=== PATIENT | male | born 1985 | race Caucasian/White ===

== ENCOUNTER 2019-06-20 02:40 | Inpatient (IN) | payer OTHER ==
[~2019-06-20] VITALS: Ht 180.3 cm; Wt 110.2 kg
[2019-06-20] VITALS (7 sets, daily range): BP systolic 151–158; BP diastolic 98–100
[2019-06-20] MEDS ORDERED: ONDANSETRON HCL INJ 2MG/ML 2ML 2 MG/ML VIAL IV STA (02:46)
[2019-06-20] MEDS ORDERED: MORPHINE SULFATE INJ 4 MG/ML INJ 1ML IV STA (02:46)
--- NOTE | 2019-06-20 02:47 | NUR ---
RESP CALLED FOR HHN TX
--- NOTE | 2019-06-20 02:56 | NUR ---
resp at bs for hhn tx
[2019-06-20] MEDS ORDERED: ASPIRIN 81 MG CHEW TAB PO ONE (03:00)
[2019-06-20] MEDS ORDERED: ALBUTEROL/IPRATROPIUM 3 ML NEB NEB ONE ×2 (03:00→06:00)
[2019-06-20 03:08] LABS: BASOPHILS # (AUTO) 0.1 (0.0-0.1); BASOPHILS % 0.6 % (0.0-1.0); EOSINOPHILS # (AUTO) 0.1 (0.0-0.4); EOSINOPHILS % 0.6 % (0.0-6.0); HEMATOCRIT 44.6 % (38.2-49.6); HEMOGLOBIN 15.4 g/dL (14.0-18.0); LYMPHOCYTES # (AUTO) 2.3 (1.0-3.2); MEAN CORPUSCULAR HGB CONC 34.5 g/dL (31-35); MEAN CORPUSCULAR VOLUME 92.7 fL (81-99); MONOCYTES % 9.5 % (4.4-11.3); NEUTROPHILS % 66.9 % (38.7-80.0); PLATELET COUNT 245 x10e3/uL (140-360); RED BLOOD COUNT 4.81 x10e6/uL (4.3-5.7)
[2019-06-20 03:24] LABS: ALANINE AMINOTRANSFERASE 74 IU/L (0-55); ALBUMIN 3.3 g/dL (3.5-5.0); ALBUMIN/GLOBULIN RATIO 0.8 (0.8-2.0); ALKALINE PHOSPHATASE 147 IU/L (40-150); ANION GAP 13.2 mmol/L (8-16); BLOOD UREA NITROGEN 7 mg/dL (7-26); BUN/CREATININE RATIO 9 (6-25); CALCIUM 9.2 mg/dL (8.4-10.2); CARBON DIOXIDE 32 mmol/L (22-29); CHLORIDE 99 mmol/L (98-107); CREATINE KINASE 296 IU/L (30-200); CREATININE, SERUM 0.76 mg/dL (0.72-1.25); EST GLOMERULAR FILTRATION RATE > 60 ML/MIN (60-); GLUCOSE 140 mg/dL (74-118); POTASSIUM 3.2 mmol/L (3.5-5.1); SODIUM 141 mmol/L (136-145)
[2019-06-20] MEDS ORDERED: IOPAMIDOL 370 MG/ML 200 ML INFUS..BTL INJ ONE (03:41)
[2019-06-20] MEDS ORDERED: SODIUM CHLORIDE 0.9% 50ML 50 ML ONE (03:41)
--- NOTE | 2019-06-20 03:45 | Diagnostic Imaging Report ---
EXAMINATION: CHEST SINGLE (PORTABLE) INDICATION: SOB. COMPARISON: None FINDINGS: TUBES and LINES: None. LUNGS: Lungs are are moderately inflated. There is central vascular congestion. Mild interstitial opacities. Patchy bibasilar opacities, likely atelectasis. PLEURA: No pleural effusion or pneumothorax. HEART AND MEDIASTINUM: The cardiomediastinal silhouette is mildly enlarged. BONES AND SOFT TISSUES: No acute osseous lesion. Soft tissues are unremarkable. UPPER ABDOMEN: No free air under the diaphragm. IMPRESSION: Mild cardiomegaly with central vascular congestion and mild interstitial edema. Signed by: Dr. Nury Pearce MD on 06/20/2019 3:42 AM
--- NOTE | 2019-06-20 04:27 | Diagnostic Imaging Report ---
EXAM: CT Chest WITH contrast- Pulmonary Embolism Protocol INDICATION: Chest pain, hypoxia. COMPARISON: Chest radiograph 06/20/2019. TECHNIQUE: Chest was scanned utilizing a multidetector helical scanner from the lung apex through the level of the diaphragm after administration of IV contrast. Coronal and sagittal reformations were obtained. Pulmonary embolism protocol was performed. IV CONTRAST: 100 cc of Isovue 370 RADIATION DOSE: Total DLP: 641.6 mGy*cm Dose modulation, iterative reconstruction, and/or weight based adjustment of the mA/kV was utilized to reduce the radiation dose to as low as reasonably achievable. COMPLICATIONS: None FINDINGS: LINES/ TUBES: None. PULMONARY ARTERIES: No filling defect is identified within the pulmonary arteries to the segmental level. The subsegmental pulmonary arteries are not well opacified. Main pulmonary artery measures 3.1 cm in diameter. LUNGS AND AIRWAYS: The central airways are patent. There are multifocal groundglass opacities with tree-in-bud nodules, left lung greater than right. Diffuse mild bronchial wall thickening. PLEURA: The pleural spaces are clear. HEART AND MEDIASTINUM: The thyroid gland is normal. Enlarged right paratracheal lymph node measuring 1.5 cm on series 2, image 24. No cardiomegaly or pericardial effusion. Scattered coronary atherosclerosis. Minimal coronary atherosclerosis (series 2, image 48). UPPER ABDOMEN: Limited contrast enhanced views of the upper abdomen. Diffuse hepatic steatosis. BONES: The visualized bony thorax is within normal limits. SOFT TISSUES: Unremarkable. IMPRESSION: No evidence of pulmonary embolism to the level of the segmental pulmonary arteries. Multifocal groundglass and tree-in-bud opacities, consistent with infectious process. Enlarged right paratracheal lymph node, likely reactive. Diffuse hepatic steatosis. Minimal coronary atherosclerosis. Signed by: Dr. Nury Pearce MD on 06/20/2019 4:24 AM
[2019-06-20] MEDS ORDERED: AZITHROMYCIN 500MG/NS 250 ML 250 ML IV STA (04:46)
[2019-06-20] MEDS ORDERED: CEFTRIAXONE SOD 1 GM/NS 50 ML 50 ML IV ONE (05:00)
--- OUTSIDE RECORDS SUMMARY | 2019-06-20 05:02 | XMS REPORT ---
Author Author [facility] Address Unknown Phone Unavailable Care Team Providers Care Air Drier Machine Operator Name Role Phone JUSTO FLANNERY Unavailable Unavailable Problems This patient has no known problems. Allergies, Adverse Reactions, Alerts This patient has no known allergies or adverse reactions. Medications This patient has no known medications. Results Test Description Test Time Test Comments Text Results Atomic Results Result Comments CT CHEST W 2019-06-20 04:14:00 [place] [address] Patient Name: MCKENZIE BELL JR MR #: [id number] : 1985 Age/Sex: 33/M Req #: [id number] Adm Physician: Ordered by: JUSTO FLANNERY DO Report #: [id number] Location: ER Room/Bed: Procedure: [id number] CT/CT CHEST W Exam Date: Exam Time: REPORT STATUS: Signed EXAM: CT Chest WITH contrast- Pulmonary Embolism Protocol INDICATION: Chest pain, hypoxia. COMPARISON: Chest radiograph 06/20/2019. TECHNIQUE: Chest was scanned utilizing a multidetector helical scanner from the lung apex through the level of the diaphragm after administration of IV contrast. Coronal and sagittal reformations were obtained. Pulmonary embolism protocol was performed. IV CONTRAST: 100 cc of Isovue 370 RADIATION DOSE: Total DLP: 641.6 mGy*cm Dose modulation, iterative reconstruction, and/or weight based adjustment of the mA/kV was utilized to reduce the radiation dose to as low as reasonably achievable. COMPLICATIONS: None FINDINGS: LINES/ TUBES: None. PULMONARY ARTERIES: No filling defect is identified within the pulmonary arteries to the segmental level. The subsegmental pulmonary arteries are not well opacified. Main pulmonary artery measures 3.1 cm in diameter. LUNGS AND AIRWAYS: The central airways are patent. There are multifocal groundglass opacities with tree-in-bud nodules, left lung greater than right. Diffuse mild bronchial wall thickening. PLEURA: The pleural spaces are clear. HEART AND MEDIASTINUM: The thyroid gland is normal. Enlarged right paratracheal lymph node measuring 1.5 cm on series 2, image 24. No cardiomegaly or pericardial effusion. Scattered coronary atherosclerosis. Minimal coronary atherosclerosis (series 2, image 48). UPPER ABDOMEN: Limited contrast enhanced views of the upper abdomen. Diffuse hepatic steatosis. BONES: The visualized bony thorax is within normal limits. SOFT TISSUES: Unremarkable. IMPRESSION: No evidence of pulmonary embolism to the level of the segmental pulmonary arteries. Multifocal groundglass and tree-in-bud opacities, consistent with infectious process. Enlarged right paratracheal lymph node, likely reactive. Diffuse hepatic steatosis. Minimal coronary atherosclerosis. Signed by: Dr. Dale Servin MD on 06/20/2019 4:24 AM Dictated By: DALE SERVIN MD 3 Transcribed By: MAGDIEL on 06/20/19423 COPY TO: JUSTO FLANNERY DO CHEST SINGLE (PORTABLE) 2019-06-20 03:40:00 [place] [address] Patient Name: MCKENZIE BELL JR MR #: [id number] : 1985 Age/Sex: 33/M Req #: [id number] Adm Physician: Ordered by: JUSTO FLANNERY DO Report #: [id number] Location: ER Room/Bed: Procedure: [id number] DX/CHEST SINGLE (PORTABLE) Exam Date: 06/20/19 Exam Time: 0300 REPORT STATUS: Signed EXAMINATION: CHEST SINGLE (PORTABLE) IND ICATION: SOB. COMPARISON: None FINDINGS: TUBES and LINES: None. LUNGS: Lungs are are moderately inflated. There is central vascular congestion. Mild interstitial opacities. Patchy bibasilar opacities, likely atelectasis. PLEURA: No pleural effusion or pneumothorax. HEART AND MEDIASTINUM: The cardiomediastinal silhouette is mildly enlarged. BONES AND SOFT TISSUES: No acute osseous lesion. Soft tissues are unremarkable. UPPER ABDOMEN: No free air under the diaphragm. IMPRESSION: Mild cardiomegaly with central vascular congestion and mild interstitial edema. Signed by: Dr. Dale Servin MD on 06/20/2019 3:42 AM Dictated By: DALE SERVIN MD 1 Transcribed By: MAGDIEL on 06/20/19341 COPY TO: JUSTO FLANNERY DO
--- NOTE | 2019-06-20 06:03 | NUR ---
md kennedy aware of current 10L O2 mask on patient. ordered additional duonebs, respiratory at bedside, patient under no distress.
--- NOTE | 2019-06-20 06:24 | NUR ---
patient transferred to bed, call light in reach, verbalizes feeling better
--- NOTE | 2019-06-20 06:59 | NUR ---
WALKING ROUNDS WITH FEDERICA HO
--- NOTE | 2019-06-20 07:00 | NUR ---
WALKING ROUNDS WITH Renaldo GUTIERREZ RN.
[2019-06-20 09:35] LABS: ABG HCO3 34 mmol/L (23-28); ABG PCO2 59 mmHg (41-51); ABG PH 7.37 (7.31-7.41); ABG PO2 71 mmHg (80-105)
--- NOTE | 2019-06-20 09:37 | NUR ---
RT AT BEDSIDE FOR BIPAP PLACEMENT.
--- NOTE | 2019-06-20 10:54 | History and Physical ---
ADMITTING DIAGNOSES: 1. Acute respiratory failure with hypoxia. 2. Hypokalemia. 3. Recent influenza A pneumonia. 4. Obesity. 5. Increased liver function tests. 6. Hypertension. HISTORY OF PRESENT ILLNESS: The patient is a 33-year-old gentleman, who was recently discharged secondary to influenza pneumonia, who was at home doing a little bit better, but he started having worsening shortness of breath, does have an underlying history of asthma and hypertension, where he then came in and was noticed to have some acute respiratory failure with hypoxia. So, he is now currently on O2 support with improved symptoms and is being admitted for further evaluation and treatment. PAST MEDICAL HISTORY: Significant for asthma and hypertension. MEDICATIONS: See SEP. ALLERGIES: NONE. SOCIAL HISTORY: Nonsmoker, nondrinker. Lives at home. FAMILY HISTORY: Hypertension. PHYSICAL EXAMINATION: VITAL SIGNS: Temperature 98.6, blood pressure 156/92, pulse 102, and saturations 95% on oxygen. GENERAL: He is sitting upright with his O2 on, but he is able to talk with me, appears to be in mild respiratory distress. NECK: Supple. No lymphadenopathy. No JVD. CARDIOVASCULAR: Regular rate and rhythm. LUNGS: Bilateral wheezing and rhonchi is noted. ABDOMEN: Obese. Good bowel sounds. Soft, nontender. EXTREMITIES: No clubbing or cyanosis. NEUROLOGIC: Nonfocal. ASSESSMENT/PLAN: 1. Acute respiratory failure with hypoxia. Continue with his O2. 2. Status post recent influenza. We will continue with current medication. 3. History of asthma. We will start him on some steroids. 4. Hypertension. We will continue with current care and monitoring. 5. Hypokalemia. We will replace his potassium. 6. Obesity. The patient is encouraged to diet. 7. Elevated liver function tests. We will continue to monitor. Please see hospital chart for full details. MD DERRICK Cabrera/MODL /[id number]
--- NOTE | 2019-06-20 11:00 | NUR ---
REC'D PT IN WALKING ROUNDS WITH [place] STALLWORTH. WAITING ROOM ASSIGNMENT. IN HOSPITAL BED AT THIS TIME. ALL PERSONAL ITEMS WITHIN REACH.
--- NOTE | 2019-06-20 12:14 | NUR ---
DR. DIAZ IN TO SEE THE PT.
[2019-06-20] MEDS ORDERED: FUROSEMIDE INJ 10 MG/ML 2 ML VIAL IV NR (12:30)
[2019-06-20] MEDS: METHYLPREDNISOLONE SOD SUCC 40 MG/ML VIAL 1ML IV SCH ×2 (13:18→21:18)
[2019-06-20] MEDS: AZITHROMYCIN 250 MG TAB PO SCH (13:42)
[2019-06-20] MEDS ORDERED: METHYLPREDNISOLONE SOD SUCC 40 MG/ML VIAL 1ML IV SCH (14:00)
--- NOTE | 2019-06-20 15:15 | Consultation ---
DATE OF CONSULTATION: Pulmonary Consultation REASON FOR CONSULT: Shortness of breath, wheezing, and coughing. HISTORY OF PRESENT ILLNESS: Mr. Landry is a 33-year-old male, who presented to the emergency room with complaints of shortness of breath, wheezing, and hypoxia going on for last 5 days, progressively getting worse. He was in his usual state of health 5 days ago when he had cough, arthralgias, and myalgias. He was diagnosed with flu at [facility] and was given Tamiflu. The patient finished the Tamiflu course, but started having wheezing and shortness of breath, which was episodic, getting worse on exertion and laying flat. It was associated with some leg edema, which was getting worse. He usually has leg edema because his job involves standing in [employer]. He is morbidly obese, has never been diagnosed with sleep apnea. Body habitus is highly suggestive of sleep apnea. He denies any chest pain, nausea, vomiting, fevers, or chills. He uses albuterol HFA as needed for his asthma. REVIEW OF SYSTEMS: GENERAL: Denies any fever or chills. HEAD: Denies any head trauma. ENT: Denies any earache. CVS: Denies any chest discomfort. RESPIRATORY: Shortness of breath. GI: Denies any nausea or vomiting. MUSCULOSKELETAL: Denies any arthralgias or myalgias. NEURO: Denies any focal weakness. The rest is negative except as in HPI. PAST MEDICAL HISTORY: None diagnosed except asthma, which he uses p.r.n. albuterol. PAST SURGICAL HISTORY: Tonsillectomy. FAMILY AND SOCIAL HISTORY: Ex-smoker, smoked for almost 16 to 17 years, quit 3 years ago. Used to smoke one-pack per day. Started smoking when he was 13 years old. He works at [employer]. He is single, lives with his mom. PHYSICAL EXAMINATION: VITAL SIGNS: Temperature 98.7, pulse of 106, blood pressure 168/98, respiratory rate of 18, and O2 saturation 95%. HEENT: Head is atraumatic and normocephalic. NECK: Supple. GENERAL APPEARANCE: Morbidly obese male, not in any distress. He is on a Venti mask right now 40%. CHEST: Occasional wheezing, but reduced air entry bilaterally. HEART: S1 and S2 audible. ABDOMEN: Soft and nontender. EXTREMITIES: Bilateral pedal edema. NEUROLOGICAL: He is awake and alert. No focal neurologic deficit. LABORATORY DATA: White count of 10,000, hemoglobin 15.4, and platelets 245. Chemistry; sodium 141, potassium 3.2, bicarb is 32, BUN is 7, and creatinine 0.76. Total bilirubin 1.2, AST 51, and ALT 74. Creatine kinase 296. Influenza A and B are negative here. CT of the chest, I reviewed the images, showing no pulmonary embolism, but showing some ground-glass areas and tree-in-bud opacities on both sides, but more on the left side. There is no focal pneumonia. ASSESSMENT/PLAN: Mr. Landry is a 33-year-old male presented with worsening shortness of breath, possible post influenza, as he was diagnosed with influenza at [facility], however, the serology is negative here. Current problem: 1. Asthma exacerbation, reactive airways, likely due to influenza. 2. Upper respiratory tract infection plus-minus influenza causing the tree-in-bud opacities. 3. Morbid obesity. 4. Bicarbonate being 35. The patient likely has chronic hypercapnic respiratory failure due to obesity hypoventilation syndrome versus obstructive sleep apnea. PLAN: 1. I will start the patient on IV Solu-Medrol, nebulizer treatment, oxygen as needed. 2. Also, we will start the patient on azithromycin, which will help with anti-inflammatory and will help in atypical infection. 3. BiPAP as needed especially during hours of sleep. 4. O2 as needed to keep the O2 saturation more than or equal to 92%. 5. ABG reviewed. The patient has evidence of hypercapnia with a pH of 7.37, suggesting OHS versus ANNIA. 6. I will also give one dose of Lasix. The patient appears to be fluid overloaded. The patient will need outpatient sleep study and evaluation for hypercapnia. This was discussed with the patient. Thank you for this consult. MD FALLON Aparicio/MODL /[id number]
[2019-06-20] MEDS ORDERED: PNEUMOCOCCAL VACCINE POLYVALENT 23 MCG/0.5 ML VIAL IM SCH (15:30)
[2019-06-20] MEDS: ALBUTEROL/IPRATROPIUM 3 ML NEB NEB SCH (20:00)
[2019-06-21] VITALS (10 sets, daily range): BP systolic 127–161; BP diastolic 76–99
[2019-06-21] MEDS: ALBUTEROL/IPRATROPIUM 3 ML NEB NEB SCH ×4 (03:05→20:05)
[2019-06-21 05:16] LABS: BASOPHILS % 0.2 % (0.0-1.0); HEMATOCRIT 43.5 % (38.2-49.6); HEMOGLOBIN 14.8 g/dL (14.0-18.0); LYMPHOCYTES # (AUTO) 1.1 (1.0-3.2); LYMPHOCYTES % 11.4 % (18.0-39.1); MEAN CORPUSCULAR HEMOGLOBIN 31.9 pg (28-32); MEAN CORPUSCULAR VOLUME 93.8 fL (81-99); MONOCYTES # (AUTO) 0.4 (0.2-0.8); MONOCYTES % 3.7 % (4.4-11.3); NEUTROPHILS # (AUTO) 8.4 (2.1-6.9); NEUTROPHILS % 83.9 % (38.7-80.0); PLATELET COUNT 270 x10e3/uL (140-360); RED BLOOD COUNT 4.64 x10e6/uL (4.3-5.7); RED CELL DISTRIBUTION WIDTH 12.9 % (11.7-14.4)
[2019-06-21 05:41] LABS: ALANINE AMINOTRANSFERASE 67 IU/L (0-55); ALBUMIN 3.2 g/dL (3.5-5.0); ALBUMIN/GLOBULIN RATIO 0.7 (0.8-2.0); ALKALINE PHOSPHATASE 143 IU/L (40-150); ANION GAP 13.6 mmol/L (8-16); BLOOD UREA NITROGEN 8 mg/dL (7-26); BUN/CREATININE RATIO 9 (6-25); CALCIUM 10.2 mg/dL (8.4-10.2); CARBON DIOXIDE 31 mmol/L (22-29); CHLORIDE 99 mmol/L (98-107); CREATININE, SERUM 0.92 mg/dL (0.72-1.25); EST GLOMERULAR FILTRATION RATE > 60 ML/MIN (60-); GLUCOSE 301 mg/dL (74-118); POTASSIUM 3.6 mmol/L (3.5-5.1); SODIUM 140 mmol/L (136-145)
[2019-06-21] MEDS: METHYLPREDNISOLONE SOD SUCC 40 MG/ML VIAL 1ML IV SCH (05:47)
[2019-06-21] MEDS ORDERED: FUROSEMIDE INJ 10 MG/ML 4 ML VIAL IV NR ×2 (14:00→16:45)
--- NOTE | 2019-06-21 14:15 | NUR ---
Visit made by the Spiritual Care Department Pastoral Visitor, Augustus Jeffers. PV provided pastoral presence, hospitality, and supportive listening. Pastoral Visitor informed pt/family of the scope of [employer] and availability. RENEE TOLENTINO Agriculture Inspector Spiritual Care Department O: [phone] Pager: [phone] ([phone] number calling from)
[2019-06-21] MEDS: CEFTRIAXONE SOD 1 GM/NS 50 ML 50 ML IV SCH (15:35)
[2019-06-21] MEDS ORDERED: METHYLPREDNISOLONE SOD SUCC 40 MG/ML VIAL 1ML IV SCH (17:00)
[2019-06-22] VITALS (8 sets, daily range): BP systolic 144–158; BP diastolic 82–98
[2019-06-22] MEDS: ALBUTEROL/IPRATROPIUM 3 ML NEB NEB SCH ×4 (02:00→19:45)
[2019-06-22 05:50] LABS: BASOPHILS % 0.3 % (0.0-1.0); HEMATOCRIT 42.7 % (38.2-49.6); HEMOGLOBIN 14.6 g/dL (14.0-18.0); LYMPHOCYTES # (AUTO) 2.2 (1.0-3.2); LYMPHOCYTES % 14.8 % (18.0-39.1); MEAN CORPUSCULAR HEMOGLOBIN 32.1 pg (28-32); MEAN CORPUSCULAR HGB CONC 34.2 g/dL (31-35); MEAN CORPUSCULAR VOLUME 93.8 fL (81-99); MONOCYTES # (AUTO) 1.2 (0.2-0.8); MONOCYTES % 7.7 % (4.4-11.3); NEUTROPHILS # (AUTO) 11.4 (2.1-6.9); NEUTROPHILS % 75.4 % (38.7-80.0); PLATELET COUNT 349 x10e3/uL (140-360); RED BLOOD COUNT 4.55 x10e6/uL (4.3-5.7); RED CELL DISTRIBUTION WIDTH 12.8 % (11.7-14.4)
[2019-06-22 06:08] LABS: ANION GAP 15.5 mmol/L (8-16); BLOOD UREA NITROGEN 14 mg/dL (7-26); BUN/CREATININE RATIO 15 (6-25); CALCIUM 9.6 mg/dL (8.4-10.2); CARBON DIOXIDE 32 mmol/L (22-29); CHLORIDE 99 mmol/L (98-107); CREATININE, SERUM 0.94 mg/dL (0.72-1.25); EST GLOMERULAR FILTRATION RATE > 60 ML/MIN (60-); GLUCOSE 243 mg/dL (74-118); POTASSIUM 3.5 mmol/L (3.5-5.1); SODIUM 143 mmol/L (136-145)
[2019-06-22] MEDS: METHYLPREDNISOLONE SOD SUCC 40 MG/ML VIAL 1ML IV SCH ×2 (09:20→20:44)
[2019-06-22] MEDS: AZITHROMYCIN 250 MG TAB PO SCH (09:20)
[2019-06-22] MEDS ORDERED: FUROSEMIDE INJ 10 MG/ML 4 ML VIAL IV ONE (10:30)
--- NOTE | 2019-06-22 11:00 | NUR ---
PT C/O IV HURTING, REMOVED IV, PT TOLERATED WELL
--- NOTE | 2019-06-22 13:00 | NUR ---
NEW 20G STARTED TO LEFT WRIST, PT TOLERATED WELL
[2019-06-22] MEDS ORDERED: FUROSEMIDE INJ 10 MG/ML 4 ML VIAL ONE (13:02)
[2019-06-22] MEDS ORDERED: SODIUM CHLORIDE 0.9% 250ML 250 ML ONE (13:35)
[2019-06-22] MEDS: CEFTRIAXONE SOD 1 GM/NS 50 ML 50 ML IV SCH (14:00)
--- NOTE | 2019-06-22 15:28 | NUR ---
Received order to set up home o2. Spoke to pt at bedside. He gave choice for [facility] and [facility] [email or web address]. Would like for us to try [facility]. Signed choice letter placed in front of chart. Copy to pt. Referral was faxed to [facility] Johana Gonsales, liaison with [facility] was notified of referral. Johana's cell [phone]
[2019-06-23] MEDS: ALBUTEROL/IPRATROPIUM 3 ML NEB NEB SCH ×2 (01:12→07:00)
[2019-06-23 03:00] VITALS: BP 148/88
--- NOTE | 2019-06-23 07:00 | NUR ---
Pt received resting in bed. Alert and oriented x4. Oriented to staff and surroundings. Encouraged to press call [place] if help needed. Emotional support given. Call [place] within reach. Will monitor
[2019-06-23 07:20] VITALS: BP 145/92
[2019-06-23] MEDS: AZITHROMYCIN 250 MG TAB PO SCH (08:42)
[2019-06-23] MEDS: METHYLPREDNISOLONE SOD SUCC 40 MG/ML VIAL 1ML IV SCH (08:42)
--- NOTE | 2019-06-23 11:37 | NUR ---
Portable home O2 has been delivered to pt's bedside by [facility].
[2019-06-23 12:00] VITALS: BP 157/108
--- NOTE | 2019-06-23 13:15 | NUR ---
Visit made by the Spiritual Care Department Pastoral Visitor, Ashley Gooden. Pt out of room and no family at bedside. A card was left at the bedside to indicate a missed visit from a member of the Spiritual Care team and to inform the pt and family of the availability of a Field Assistant 24 hours a day/7 days a week. A pig casting machine operator will follow up as able. RENEE TOLENTINO Field Assistant Spiritual Care Department O: [phone] Pager: [phone] ([phone] number calling from)
[2019-06-23] MEDS: CEFTRIAXONE SOD 1 GM/NS 50 ML 50 ML IV SCH (13:19)
--- NOTE | 2019-06-23 13:42 | NUR ---
Received call from Yenifer Gamez DC case management social worker with [facility]. Her contact number is [phone] and can assist with dc planning. Informed her home o2 has already been arranged. Has been cleared by pulmonary MD for discharge.
[2019-06-23] MEDS ORDERED: LEVAQUIN500 MG PO (15:05)
[2019-06-23] MEDS ORDERED: PREDNISONE20 MG PO (15:06)
[2019-06-23] MEDS ORDERED: LASIX40 MG PO (15:07)
[2019-06-23] MEDS ORDERED: POTASSIUM CHLO10 ME1 PO (15:07)
[2019-06-23] MEDS ORDERED: ALBUTEROL0.63 MG/3 INH (15:08)
--- NOTE | 2019-06-23 15:30 | NUR ---
Pt given discharge instructions regarding meds, diet, activities, s/s to report and follow up appointment. Pt verbalized understanding of teaching. Refusing wheelchair. Parked in ER parking lot. Will be escorted to car by PCT. Emotional support given
--- NOTE | 2019-06-23 17:00 | NUR ---
Pt escorted off unit by tech.
== END 2019-06-23 17:40 | disposition home or self-care (01) | DRG 193 ==
LOC: ER 02:40 → ERHOLD 04:59 → OBSVTOIN 11:30 → IMCU 14:35
PROVIDERS: ADMIT Internal Medicine; ATTEND Internal Medicine
DX: J09.X2 Influenza due to identified novel influenza A virus with other respiratory manifestations (principal); J96.01 Acute respiratory failure with hypoxia; J96.22 Acute and chronic respiratory failure with hypercapnia; J96.21 Acute and chronic respiratory failure with hypoxia; E66.2 Morbid (severe) obesity with alveolar hypoventilation; J45.901 Unspecified asthma with (acute) exacerbation; J18.9 Pneumonia, unspecified organism; E87.6 Hypokalemia; I10 Essential (primary) hypertension; Z68.33 Body mass index [BMI] 33.0-33.9, adult
CPT/HCPCS: 36415; 36600; 71045; 71260; 80048; 80053; 82550; 82553; 82805; 83735; 83880; 84484; 85025; 87400; 90732; 93005; 94640; 94660; 99285; J0456; J0696; J1940; J2920; J7050; Q9967

== ENCOUNTER → 2019-09-16 | Outpatient (CLI) | payer OTHER ==
[~2019-09-16] MED LIST: ALBUTEROL0.63 MG/3 INH; LASIX40 MG PO; LEVAQUIN500 MG PO; POTASSIUM CHLO10 ME1 PO; PREDNISONE20 MG PO
--- NOTE | 2019-09-23 06:06 | Polysomnography ---
DATE OF STUDY: REFERRING PHYSICIAN: STUDY: Polysomnogram. The patient of Dr. Franks. FINDINGS: The patient with a history of daytime hypersomnolence, chronic respiratory failure, on home oxygen at 4 L. He was monitored using standard EEG lead montage including electrooculogram, submentalis EMG, anterior tibialis EMG, nasal and oral thermistors, ribcage inductive plethysmography, pulse oximetry, and EKG monitoring. Sleep efficiency was 84%. All stages of sleep were recorded. Sleep onset latency was 23 minutes. The patient experienced 259 obstructive apneas, the average duration was 14 seconds. In addition, there was 38 mixed and 13 central apneas. Totaling 310 apneas and 381 hypopneas, 40 respiratory event related arousals. The patient slept on his side during the study, it was significant O2 desaturation to 53%. All stages of sleep recorded. The patient's apnea-hypopnea index was 120. The respiratory disturbance index 127. These findings are consistent with very severe obstructive sleep apnea. The patient should be warned not to drive when left untreated. Therapeutic options in addition to weight reduction would include uvulopalatopharyngoplasty with jaw advancement, tracheostomy and nasal CPAP. Certainly examination of nasal and oropharynx should be considered, if not performed recently as well as to evaluate function. He should be warned not to drive when left untreated. IMPRESSION: Very severe obstructive sleep apnea. MD MACEY Vo/MODL /[id number]
== END ==
LOC: SLEEP 19:06
PROVIDERS: ATTEND Internal Medicine
DX: R40.0 Somnolence (principal); J45.40 Moderate persistent asthma, uncomplicated
CPT/HCPCS: 95810

== ENCOUNTER → 2019-12-30 | Outpatient (CLI) | payer OTHER | LOC: SLEEP 20:32 | PROVIDERS: ATTEND Internal Medicine | DX: G47.33 Obstructive sleep apnea (adult) (pediatric) (principal); Z11.59 Encounter for screening for other viral diseases | CPT/HCPCS: 87635; 95811 ==

== ENCOUNTER 2024-02-08 14:11 | Inpatient (IN) | payer MEDICARE, OTHER ==
[~2024-02-08] VITALS: Ht 180.3 cm; Wt 163.3 kg
[2024-02-08 15:29] LABS: BASOPHILS # (AUTO) 0.1 (0.0-0.1); EOSINOPHILS # (AUTO) 0.1 (0.0-0.4); EOSINOPHILS % 1.2 % (0.0-6.0); HEMATOCRIT 43.1 % (38.2-49.6); HEMOGLOBIN 15.3 g/dL (14.0-18.0); LYMPHOCYTES # (AUTO) 2.6 (1.0-3.2); LYMPHOCYTES % 25.1 % (18.0-39.1); MEAN CORPUSCULAR HGB CONC 35.5 g/dL (31-35); MEAN CORPUSCULAR VOLUME 87.2 fL (81-99); MONOCYTES # (AUTO) 0.7 (0.2-0.8); MONOCYTES % 7.1 % (4.4-11.3); NEUTROPHILS # (AUTO) 6.8 (2.1-6.9); NEUTROPHILS % 64.8 % (38.7-80.0); PLATELET COUNT 227 x10e3/uL (140-360); RED BLOOD COUNT 4.94 x10e6/uL (4.3-5.7); RED CELL DISTRIBUTION WIDTH 13.9 % (11.7-14.4); WHITE BLOOD COUNT 10.41 x10e3/uL (4.8-10.8)
[2024-02-08] MEDS: METHYLPREDNISOLONE SOD SUCC 125 MG/2ML VIAL IV STA (15:42)
[2024-02-08] MEDS: FUROSEMIDE INJ 10 MG/ML 4 ML VIAL IV ONE (15:43)
[2024-02-08 15:54] LABS: INR 0.91; PROTHROMBIN TIME 12.9 seconds (11.9-14.5)
[2024-02-08 15:55] LABS: PARTIAL THROMBOPLASTIN TIME 28.4 seconds (23.8-35.5)
[2024-02-08 15:56] LABS: INFLUENZAE A&B ANTIGEN (RAPID) NEGATIVE (NEGATIVE); RESPIRATORY SYNC. VIRUS NEGATIVE (NEGATIVE)
[2024-02-08 15:58] LABS: ALANINE AMINOTRANSFERASE 65 IU/L (0-55); ALBUMIN 3.6 g/dL (3.5-5.0); ALBUMIN/GLOBULIN RATIO 0.9 (0.8-2.0); ALKALINE PHOSPHATASE 142 IU/L (40-150); ANION GAP 12.9 mmol/L (8-16); BILIRUBIN,TOTAL 0.8 mg/dL (0.2-1.2); BLOOD UREA NITROGEN 9 mg/dL (7-26); BUN/CREATININE RATIO 9 (6-25); CALCIUM 9.5 mg/dL (8.4-10.2); CARBON DIOXIDE 23 mmol/L (22-29); CHLORIDE 102 mmol/L (98-107); CREATINE KINASE 69 IU/L (30-200); CREATININE, SERUM 0.99 mg/dL (0.72-1.25); EST GLOMERULAR FILTRATION RATE 99 ML/MIN (>=60); GLUCOSE 354 mg/dL (74-118); POTASSIUM 3.9 mmol/L (3.5-5.1); SODIUM 134 mmol/L (136-145); TOTAL PROTEIN 7.6 g/dL (6.5-8.1)
[2024-02-08 16:34] LABS: TROPONIN I < 0.001 ng/mL (0-0.300)
[2024-02-08] MEDS: ASPIRIN 81 MG CHEW TAB PO STA (17:07)
[2024-02-08] MEDS: HYDROCODONE/APAP 7.5MG-325MG 1 EA TAB PO ONE (17:07)
[2024-02-08] MEDS: CLONIDINE HCL 0.1 MG TAB PO ONE (17:08)
[2024-02-08 17:13] VITALS: PULSE 92; RESP 18; O2SAT 96
[2024-02-08] MEDS: ALBUTEROL/IPRATROPIUM 3 ML NEB NEB ONE (17:15)
[2024-02-08] MEDS: HYDRALAZINE HCL 20 MG/ML VIAL IV ONE (18:31)
[2024-02-08] MEDS: CIPROFLOXACIN-DEXAMETHASONE (OTIC) 7.5 ML BOTTLE OT SCH (18:45)
[2024-02-08] MEDS ORDERED: Morphine 4mg INJECTION 4 MG/ML INJ IV PRN (18:45)
[2024-02-08] MEDS ORDERED: HYDRALAZINE HCL 20 MG/ML VIAL IV PRN (18:45)
[2024-02-08] MEDS ORDERED: ONDANSETRON HCL INJ 2MG/ML 2ML 2 MG/ML VIAL IV PRN (18:45)
[2024-02-08] MEDS ORDERED: DEXTROSE 50% SYRINGE 50 ML IV PRN (18:45)
[2024-02-08 18:56] VITALS: PULSE 102; RESP 22; TEMP 98
[2024-02-08] MEDS ORDERED: NITROGLYCERIN 2% OINT 1 GM PKT ONE (19:00)
[2024-02-08] MEDS: ALBUTEROL/IPRATROPIUM 3 ML NEB NEB SCH (19:00)
[2024-02-08] MEDS: NITROGLYCERIN 2% OINT 1 GM PKT TOP SCH (19:02)
[2024-02-08 20:45] VITALS: BP 164/93; PULSE 100; RESP 21; TEMP 97.8; O2SAT 96
[2024-02-08] MEDS: INSULIN LISPRO 100 UNIT/1 ML 3ML VIAL SQ SCH (21:00)
[2024-02-08 23:24] VITALS: PULSE 71; RESP 18; O2SAT 96
[2024-02-09] VITALS (7 sets, daily range): BP systolic 139–158; BP diastolic 77–98; PULSE 56–112; RESP 18–20; TEMP 98–98.6; O2SAT 96–98
[2024-02-09] MEDS: HYDROCODONE/APAP 7.5MG-325MG 1 EA TAB PO PRN (02:35)
[2024-02-09] MEDS ORDERED: TRAZODONE HCL50 MG PO (04:37)
[2024-02-09] MEDS ORDERED: JANUVIA100 MG PO (04:37)
[2024-02-09] MEDS ORDERED: CLONAZEPAM1 MG PO (04:37)
[2024-02-09] MEDS ORDERED: HYDROCHLOROTH12.5 MG PO (04:37)
[2024-02-09] MEDS ORDERED: ASPIRIN81 MG PO (04:37)
[2024-02-09] MEDS ORDERED: COREG12.5 MG PO (04:37)
[2024-02-09] MEDS ORDERED: ATORVASTATIN CA40 MG PO (04:37)
[2024-02-09] MEDS ORDERED: MELOXICAM15 MG PO (04:37)
[2024-02-09] MEDS ORDERED: TIZANIDINE HCL4 MG PO (04:37)
[2024-02-09] MEDS ORDERED: ALBUTEROL0.63 MG/3 NEB (04:37)
[2024-02-09] MEDS ORDERED: JARDIANCE25 MG PO (04:37)
[2024-02-09] MEDS ORDERED: FAMOTIDINE20 MG PO (04:37)
[2024-02-09] MEDS ORDERED: ELIQUIS5 MG PO (04:37)
[2024-02-09] MEDS ORDERED: LISINOPRIL10 MG PO (04:37)
[2024-02-09] MEDS ORDERED: ZOLOFT100 MG PO (04:37)
[2024-02-09 07:34] LABS: BASOPHILS % 0.2 % (0.0-1.0); HEMATOCRIT 42.6 % (38.2-49.6); HEMOGLOBIN 14.7 g/dL (14.0-18.0); LYMPHOCYTES # (AUTO) 1.2 (1.0-3.2); LYMPHOCYTES % 9.6 % (18.0-39.1); MEAN CORPUSCULAR HEMOGLOBIN 30.8 pg (28-32); MEAN CORPUSCULAR HGB CONC 34.5 g/dL (31-35); MEAN CORPUSCULAR VOLUME 89.3 fL (81-99); MONOCYTES # (AUTO) 0.7 (0.2-0.8); MONOCYTES % 5.2 % (4.4-11.3); NEUTROPHILS # (AUTO) 10.8 (2.1-6.9); NEUTROPHILS % 83.8 % (38.7-80.0); PLATELET COUNT 263 x10e3/uL (140-360); RED BLOOD COUNT 4.77 x10e6/uL (4.3-5.7); RED CELL DISTRIBUTION WIDTH 14.3 % (11.7-14.4); WHITE BLOOD COUNT 12.88 x10e3/uL (4.8-10.8)
[2024-02-09 08:05] LABS: CREATINE KINASE 55 IU/L (30-200)
[2024-02-09 08:07] LABS: ALBUMIN 3.6 g/dL (3.5-5.0); ALBUMIN/GLOBULIN RATIO 0.8 (0.8-2.0); ANION GAP 12.4 mmol/L (8-16); BILIRUBIN,TOTAL 0.7 mg/dL (0.2-1.2); CALCIUM 10.4 mg/dL (8.4-10.2); CHOL/HDL RATIO 5.3 (3.9-4.7); CREATININE, SERUM 1.11 mg/dL (0.72-1.25); POTASSIUM 4.4 mmol/L (3.5-5.1); TOTAL PROTEIN 8.1 g/dL (6.5-8.1)
[2024-02-09 08:15] LABS: TROPONIN I < 0.001 ng/mL (0-0.300)
[2024-02-09] MEDS: FUROSEMIDE INJ 10 MG/ML 2 ML VIAL IV SCH (10:12)
[2024-02-09] MEDS: CARVEDILOL 12.5 MG TAB PO SCH (17:00)
[2024-02-09] MEDS: FAMOTIDINE 20 MG TAB PO SCH (18:36)
[2024-02-09] MEDS: APIXABAN 5 MG TABLET PO SCH (18:36)
[2024-02-09] MEDS: TRAZODONE HCL 50 MG TAB PO SCH (21:17)
[2024-02-09] MEDS: SERTRALINE HCL 100 MG TAB PO SCH (21:17)
[2024-02-10] VITALS (13 sets, daily range): BP systolic 127–185; BP diastolic 81–96; PULSE 82–110; RESP 16–20; TEMP 97.8–98.8; O2SAT 95–100
[2024-02-10 05:05] LABS: BASOPHILS # (AUTO) 0.1 (0.0-0.1); BASOPHILS % 0.7 % (0.0-1.0); EOSINOPHILS # (AUTO) 0.1 (0.0-0.4); EOSINOPHILS % 0.6 % (0.0-6.0); HEMATOCRIT 39.9 % (38.2-49.6); HEMOGLOBIN 13.7 g/dL (14.0-18.0); LYMPHOCYTES # (AUTO) 3.9 (1.0-3.2); LYMPHOCYTES % 34.2 % (18.0-39.1); MEAN CORPUSCULAR HEMOGLOBIN 31.4 pg (28-32); MEAN CORPUSCULAR HGB CONC 34.3 g/dL (31-35); MEAN CORPUSCULAR VOLUME 91.5 fL (81-99); MONOCYTES # (AUTO) 0.8 (0.2-0.8); MONOCYTES % 6.8 % (4.4-11.3); NEUTROPHILS # (AUTO) 6.5 (2.1-6.9); NEUTROPHILS % 57.2 % (38.7-80.0); PLATELET COUNT 232 x10e3/uL (140-360); RED BLOOD COUNT 4.36 x10e6/uL (4.3-5.7); RED CELL DISTRIBUTION WIDTH 14.6 % (11.7-14.4)
[2024-02-10 05:31] LABS: ANION GAP 11.7 mmol/L (8-16); CALCIUM 9.4 mg/dL (8.4-10.2); CREATININE, SERUM 0.95 mg/dL (0.72-1.25); POTASSIUM 3.7 mmol/L (3.5-5.1)
[2024-02-10 06:03] LABS: CREATINE KINASE 45 IU/L (30-200)
[2024-02-10 06:11] LABS: TROPONIN I < 0.001 ng/mL (0-0.300)
[2024-02-10] MEDS: ASPIRIN 81 MG CHEW TAB PO SCH (08:29)
[2024-02-10] MEDS: EMPAGLIFLOZIN 10 MG TABLET PO SCH (08:29)
[2024-02-10] MEDS: ATORVASTATIN 40 MG TAB PO SCH (08:29)
[2024-02-10] MEDS: PREDNISONE 20 MG TAB PO SCH (08:41)
[2024-02-10] MEDS: SITAGLIPTIN 100 MG TAB PO SCH (08:41)
[2024-02-10] MEDS ORDERED: REGADENOSON 0.4 MG/5 ML SYR IV ONE (13:59)
[2024-02-11] VITALS (15 sets, daily range): BP systolic 107–145; BP diastolic 61–89; PULSE 74–96; RESP 12–22; TEMP 97.3–98.4; O2SAT 94–99
[2024-02-11] MEDS ORDERED: ONDANSETRON HCL 4 MG ORAL DISINTEGRATING TAB PO PRN (11:30)
[2024-02-11] MEDS: TIZANIDINE HCL 4 MG TAB PO SCH (14:58)
[2024-02-11] MEDS: CLOPIDOGREL BISULFATE 75 MG TAB PO SCH (18:23)
[2024-02-11] MEDS: ISOSORBIDE MONONITRATE 30 MG TAB CR PO SCH (18:24)
[2024-02-12] VITALS (10 sets, daily range): BP systolic 123–148; BP diastolic 75–86; PULSE 65–85; RESP 18–20; TEMP 97.5–97.9; O2SAT 95–100
[2024-02-12] MEDS ORDERED: PLAVIX75 MG PO (13:30)
[2024-02-12 15:30] LABS: ABG HCO3 30 mmol/L (22-26); ABG PCO2 49 mmHg (35-45); ABG PH 7.39 (7.35-7.45); ABG PO2 65 mmHg (80-105); ABG TCO2 31
[2024-02-15 18:08] LABS: ABG HCO3 30 mmol/L (22-26); ABG PCO2 49 mmHg (35-45); ABG PH 7.39 (7.35-7.45); ABG PO2 65 mmHg (80-105); ABG TCO2 31
== END 2024-02-12 17:54 | disposition home or self-care (01) | DRG 190 ==
LOC: ER 14:28 → ERHOLD 18:45 → MED/SURG2 20:24
PROVIDERS: ADMIT Internal Medicine; ATTEND Internal Medicine
PROC: 5A09357 Assistance with Respiratory Ventilation, Less than 24 Consecutive Hours, Continuous Positive Airway Pressure (ICD-10-PCS; principal; 2024-02-09)
PROC: 4A033R1 Measurement of Arterial Saturation, Peripheral, Percutaneous Approach (ICD-10-PCS; 2024-02-12)
PROC: 4A033R1 Measurement of Arterial Saturation, Peripheral, Percutaneous Approach (ICD-10-PCS; 2024-02-12)
DX: J44.1 Chronic obstructive pulmonary disease with (acute) exacerbation (principal); J96.20 Acute and chronic respiratory failure, unspecified whether with hypoxia or hypercapnia; Z68.43 Body mass index [BMI] 50.0-59.9, adult; I50.32 Chronic diastolic (congestive) heart failure; I16.0 Hypertensive urgency; I50.812 Chronic right heart failure; I11.0 Hypertensive heart disease with heart failure; Z99.81 Dependence on supplemental oxygen; H60.92 Unspecified otitis externa, left ear; R07.89 Other chest pain; E78.2 Mixed hyperlipidemia; E11.42 Type 2 diabetes mellitus with diabetic polyneuropathy; E11.65 Type 2 diabetes mellitus with hyperglycemia; Z79.84 Long term (current) use of oral hypoglycemic drugs; E66.01 Morbid (severe) obesity due to excess calories; Z71.3 Dietary counseling and surveillance; G47.33 Obstructive sleep apnea (adult) (pediatric); M19.91 Primary osteoarthritis, unspecified site; I34.0 Nonrheumatic mitral (valve) insufficiency; F41.8 Other specified anxiety disorders; Z86.718 Personal history of other venous thrombosis and embolism; Z79.01 Long term (current) use of anticoagulants; Z79.899 Other long term (current) drug therapy; Z79.52 Long term (current) use of systemic steroids
CPT/HCPCS: 36415; 36600; 71045; 78452; 80048; 80053; 80061; 82550; 82805; 82948; 83036; 83735; 83880; 84484; 85025; 85610; 85730; 87040; 87400; 87420; 93005; 93017; 93306; 94640; 94660; 94799; 99252; 99284; A9502; J0360; J1940; J2270; J2919; J7512; U0002